=== PATIENT | male | born 1995 | race Caucasian/White ===

== ENCOUNTER 2018-02-26 10:38 | Emergency (ER) | payer MEDICAID, OTHER ==
[~2018-02-26] VITALS: Ht 193 cm; Wt 188.2 kg
--- OUTSIDE RECORDS SUMMARY | 2018-02-26 10:44 | XMS REPORT ---
Author Author Sofia Gonzalez [facility] Address [address] [place] [address] Care Team Providers Care Intelligence Operations Name Role Phone Sofia Gonzalez Unavailable PROBLEMS Unknown Problems ALLERGIES No Information ENCOUNTERS Encounter Location Date Diagnosis [address] [id number] [id number] Feb Diarrhea, unspecified type R19.[address] [id number] [id number] Feb [address] [id number] [id number] Feb Encounter for laboratory test Z01.[address] [id number] [id number] Feb BMI 50.0-59.9, adult Z68.43 IMMUNIZATIONS No Known Immunizations SOCIAL HISTORY Never Assessed REASON FOR VISIT Labs PLAN OF CARE Activity Details Follow Up prn Reason: VITAL SIGNS MEDICATIONS No Known Medications RESULTS No Results PROCEDURES No Known procedures INSTRUCTIONS MEDICATIONS ADMINISTERED No Known Medications MEDICAL (GENERAL) HISTORY Type Description Date Surgical History Appendectomy Hospitalization History see above
--- OUTSIDE RECORDS SUMMARY | 2018-02-26 10:44 | XMS REPORT ---
Author Author Vern Alanis [facility] Address [address] [place] [address] Care Team Providers Care Telecommunications Network Engineer Name Role Phone Vern Alanis Unavailable PROBLEMS Type Condition ICD9-CM Code GGI37-ES Code Onset Dates Condition Status SNOMED Code Assessment Diarrhea, unspecified type R19.7 Feb, Active 39296303 ALLERGIES Substance Reaction Event Type Date Status N.K.D.A. Unknown Non Drug Allergy Feb, Unknown SOCIAL HISTORY No smoking Hx information available PLAN OF CARE Activity Details Pending Test Stool Culture 096118 Pending Test C difficile Toxins A+B, EIA 129061 Pending Test Comp Metabolic Panel [phone] CMP Pending Test White Blood Cells (WBC), Stool 227425 Pending Test CBC With Differential Platelet 000316 prn,Reason: VITAL SIGNS Height 72.0 in 2017-03-16 Weight 417.0 lbs 2017-03-16 Temperature 98.1 degrees Fahrenheit 2017-03-16 BMI 56.55 kg/m2 2017-03-16 MEDICATIONS No Known Medications RESULTS No Results PROCEDURES Procedure Date Ordered Related Diagnosis Body Site ESTAB PT LEVEL III March 16, 2017 IMMUNIZATIONS No Known Immunizations
[2018-02-26] MEDS ORDERED: NS IV 1000 ML 1,000 ML IV SCH (11:49)
[2018-02-26] MEDS ORDERED: NS IV 1000 ML 1,000 ML IV ONE (12:21)
--- NOTE | 2018-02-26 12:23 | ED GI ---
General Chief Complaint: Abdominal/GI Problems Stated Complaint: SEVERE DIARRHEA,ABD PAIN Nursing Triage Note: REPORTING EPIGASTRIC PAIN WITH DIARRHEA X 36 HRS, REPORTS NO VOMITING BUT NOT KEEPING FLUIDS DOWN Sepsis Screen: Possible Sepsis Risk Source of Information: Patient Exam Limitations: No Limitations History of Present Illness Date Seen by Provider: Feb 26, 2018 Time Seen by Provider: 12:05 Initial Comments Here with epigastric and abdominal pain and chronic diarrhea. States the diarrhea has been going on for 8 months but has been much worse over the last [address] [facility] this morning and had labs and ultrasound of the gallbladder. No significant findings. Apparently called their primary care doctor who told to come here to get HIDA scan although it appears it was the nurse for the clinic. On arrival here, patient was requesting HIDA scan. No significant acute or emergent findings on previous evaluation noted. Patient has had nonbloody diarrhea. He is unsure ways had diarrhea for 8 months. Did recently start some medicines but states that hasn' t changed it and it. He has not seen a surgeon. Timing/Duration: 1-2 Days Severity/Quality: Moderate, Cramping Location: Epigastric, Generalized Abdomen Radiation: No Radiation Activities at Onset: None Modifying Factors: Improves With Defecating, Worsens With Eating Associated Symptoms: No Back Pain, No Chest Pain, No Fever/Chills, No Nausea/ Vomiting Allergies and Home Medications Allergies Coded Allergies: No Known Drug Allergies (Unverified , 02/26/18) Patient Home Medication List Home Medication List Reviewed: Yes Review of Systems Constitutional: see HPI, No chills, No fever EENTM: No Symptoms Reported Respiratory: No Symptoms Reported Cardiovascular: No Symptoms Reported Gastrointestinal: See HPI, Abdominal Pain, Denies Constipated, Diarrhea, Nausea , Vomiting Genitourinary: No Symptoms Reported Musculoskeletal: no symptoms reported All Other Systems Reviewed Negative Unless Noted: Yes Past Ekboaee-Aentci-Exzjba Hx Patient Social History Alcohol Use: Denies Use Recreational Drug Use: No Smoking Status: Unknown if Ever Smoked Recent Foreign Travel: No Contact w/Someone Who Travel: No Recent Infectious Disease Expo: No Recent Hopitalizations: No Seasonal Allergies Seasonal Allergies: No Past Medical History Surgeries: Yes Appendectomy Respiratory: No Cardiac: Yes Hypertension Neurological: No Genitourinary: No Gastrointestinal: No Musculoskeletal: No Endocrine: No HEENT: No Cancer: No Psychosocial: No Integumentary: No Blood Disorders: No Family Medical History Reviewed Nursing Family Hx No Pertinent Family Hx Physical Exam Vital Signs Vital Signs - First Documented 02/26/18 11:16 Temp 98.2 Pulse 121 Resp 22 B/P (MAP) 147/103 (118) Pulse Ox 96 O2 Delivery Room Air Capillary Refill : Less Than 3 Seconds General Appearance: WD/WN, no apparent distress, obese HEENT: PERRL/EOMI, pharynx normal Neck: full range of motion, supple Respiratory: lungs clear, normal breath sounds Cardiovascular: no murmur, tachycardia Gastrointestinal: normal bowel sounds, non tender, soft Extremities: non-tender, normal inspection Back: normal inspection, no CVA tenderness, no vertebral tenderness Neurologic/Psychiatric: alert, oriented x 3 Skin: normal color, warm/dry Progress/Results/Core Measures My Orders Orders - MARISA ROACH MD Saline Lock/Iv-Start (02/26/18 11:49) Ns Iv 1000 Ml (Sodium Chloride 0.9%) (02/26/18 11:49) Saline Lock/Iv-Start (02/26/18 12:21) Ns Iv 1000 Ml (Sodium Chloride 0.9%) (02/26/18 12:21) Vital Signs/I&O 02/26/18 11:16 Temp 98.2 Pulse 121 Resp 22 B/P (MAP) 147/103 (118) Pulse Ox 96 O2 Delivery Room Air Blood Pressure Mean: 118 Progress Note : Progress Note Seen and evaluated. IV with normal saline 1 L bolus ordered as patient's complaining of dehydration. He did request medical records from [facility] including labs and ultrasound. Labs show white count of 10.7 with hemoglobin of 13.7 and platelets of 227. Chemistries show sodium 135, potassium 3.6, chloride 100, CO2 23, creatinine 0.89 with BUN of 14. AST, ALT and total bili all normal. Amylase was 30 and lipase was 11. UA did not show any significant findings. Gallbladder ultrasound shows liver is moderately enlarged and significantly echogenic from fatty infiltration. Gallbladder itself appears normal though small. There are no filling defects in the gallbladder. We did discuss the need for surgical referral. I did discuss the case with Dr. Lopez at 1326. He will see the patient in the office within the next week. This was discussed with the patient and family who are very happy about this. Discharged home with return precautions. Patient and family verbalize understanding instructions and agreement with plan. Departure Impression Primary Impression: Chronic diarrhea Additional Impressions: Diffuse abdominal pain Dehydration Disposition: 01 HOME, SELF-CARE Condition: Improved Departure-Patient Inst. Decision time for Depature: 13:32 Referrals: ALEXX LOPEZ RACHEL L MD (PCP/Family) Primary Care Physician Patient Instructions: Dehydration, Adult (DC), Diarrhea in Adolescents and Adults, Acute Abdomen (Belly Pain), Adult (DC) Add. Discharge Instructions: All discharge instructions reviewed with patient and/or family. Voiced understanding. Call the office of Dr. Barros today for appointment next week. Clear liquid or light diet for the next few days and then advance as tolerated. You should consider starting probiotic you can get this [id number] and take per package directions. Take other medications as previously prescribed. Return for worsening, fever, vomiting, weakness, breathing problems or other concerns as needed. Copy Copies To 1: ALEXX LOPEZ TIMOTHY D MD Feb 26, 2018 12:23
[2018-02-26 13:53] VITALS: BP 144/78
== END 2018-02-26 13:53 | disposition home or self-care (01) ==
LOC: ER 10:41
DX: K52.9 Noninfective gastroenteritis and colitis, unspecified (principal); E86.0 Dehydration; I10 Essential (primary) hypertension; Z90.49 Acquired absence of other specified parts of digestive tract
CPT/HCPCS: 96360

== ENCOUNTER 2018-03-10 05:50 | Outpatient (CLI) | payer MEDICAID ==
[~2018-03-10] VITALS: Ht 193 cm; Wt 188.2 kg
[2018-03-10] MEDS ORDERED: GABA-488 PO (15:05)
[2018-03-10] MEDS ORDERED: DICY20TA10 PO (15:05)
[2018-03-10] MEDS ORDERED: HYDR25TA4 PO (15:05)
== END 2018-03-10 15:09 ==
LOC: PREOP 05:50
PROVIDERS: ATTEND Surgery
DX: Z01.818 Encounter for other preprocedural examination (principal); R19.7 Diarrhea, unspecified; R14.0 Abdominal distension (gaseous); R11.0 Nausea